=== PATIENT | male | born 1985 | race Caucasian/White ===

== ENCOUNTER 2020-01-17 04:41 | Emergency (ER) | payer MEDICAID, OTHER ==
[~2020-01-17] VITALS: Ht 188 cm; Wt 102.0 kg
[~2020-01-17 04:41] MED LIST: CHLO25CA9 PO; FOLI-17 PO; MAGN400T26 PO; METO25TA35 PO; MULT-658 PO; NICO-487 TD; THIA100T67 PO
--- NOTE | 2020-01-17 05:05 | NUR ---
FIRST PT CONTACT. PT STANDING IN ROOM, FIDGETING, CHANGED INTO GOWN AND SITTING UP ON EDGE OF GURNEY. PT UNABLE TO STAY STILL. PT STATES "I HAVE BEEN DRINKING A LOT FOR 2 WEEKS" AND THAT "TODAY A FRIEND CAME OVER WE DID A COUPLE LINES". WHEN ASKED WHAT HE TOOK PT STATES "METH." PT REPORTS THAT CP BEGAN ABOUT 6 HRS POST USE AND UVULA NOW FEELS SWOLLEN. PT CMS INTACT, NO EDEMA, DENIES N/V/D, DENIES SYNCOPY OR DIZZINESS. PULSES 2+ PEDAL AND RADIAL. PT SPEECH IS RUSHED AND APPEARS ANXIOUS, SKIN DIAPHORETIC AND FLUSHED. PT PLACED ON SPO2, BP, AND JONES MONITORING. PT IS SINUS TALK 130-140S. DAR MEDINA AT BS FOR EVAL AND POC.
[2020-01-17] MEDS ORDERED: DIAZEPAM 5 MG/ML, 2ML ONE (05:14)
[2020-01-17] MEDS ORDERED: ONDANSETRON 2MG/ML, 2ML ONE (05:15)
[2020-01-17] MEDS ORDERED: ASPIRIN 81 MG TABLET CHEW ONE (05:15)
[2020-01-17] MEDS ORDERED: ASPIRIN 81 MG TABLET CHEW PO ONE (05:30)
[2020-01-17] MEDS ORDERED: DIAZEPAM 5 MG/ML, 2ML IV ONE (05:30)
[2020-01-17] MEDS ORDERED: SODIUM CHLORIDE FLUSH 10ML SYR IVF ONE (05:30)
[2020-01-17] MEDS ORDERED: ONDANSETRON 2MG/ML, 2ML IVPush ONE (05:30)
--- NOTE | 2020-01-17 05:46 | NUR ---
PT MEDICATED PER MAR. PRIOR TO MEDICATING RN CONSULT WITH PA ON ALLERGIES AND MEDICATIONS. PA OKAY'D MED TO BE GIVEN. PT SITTING IN [facility], REPORTS FEELING SLIGHTLY CALMER, STILL APPEARS ANXIOUS, PT DIAPHORETIC AND FLUSHED. PT REPEATEDLY ASKING RN "HOW LONG IS THIS GONNA TAKE"... "ONLY LIKE 30 MINUTES RIGHT". WCTM. WAITING ON LAB RESULTS. PT CONFIRMED HE HAS RIDE HOME AVAILABLE
[2020-01-17 05:57] LABS: BASOPHILS # (AUTO) 0.06 x10^3/uL (0-0.1); BASOPHILS % (AUTO) 0 % (0-1); EOSINOPHILS # (AUTO) 0.01 x10^3/uL (0-0.4); EOSINOPHILS % (AUTO) 0 % (1-7); LYMPHOCYTES # (AUTO) 1.44 x10^3/uL (1-3.4); LYMPHOCYTES % (AUTO) 11 % (22-44); MD NO; MEAN CORPUSCULAR HEMOGLOBIN 31.6 pg (27.5-34.5); MEAN CORPUSCULAR VOLUME 92.8 fL (81-97); MEAN PLATELET VOLUME 7.9 fL (7.4-10.4); MONOCYTES # (AUTO) 0.92 x10^3/uL (0.2-0.8); MONOCYTES % (AUTO) 7 % (2-9); NEUTROPHILS # (AUTO) 10.42 x10^3/uL (1.8-6.8); NEUTROPHILS % (AUTO) 81 % (42-75); PLATELET COUNT 219 x10^3/uL (130-400); RED BLOOD COUNT 5.16 x10^6/uL (4.38-5.82); RED CELL DISTRIBUTION WIDTH 13.9 % (9.4-14.8)
[2020-01-17 06:00] LABS: ALANINE AMINOTRANSFERASE 16 U/L (12-78); ANION GAP 10 mmol/L (5-15); CALCIUM 8.8 mg/dL (8.5-10.1); CHLORIDE 106 mmol/L (98-107); CREATININE 1.22 mg/dL (0.7-1.3)
[2020-01-17 06:05] LABS: ALKALINE PHOSPHATASE 145 U/L (45-117); BILIRUBIN,TOTAL 1.6 mg/dL (0.2-1.0); TOTAL PROTEIN 8.5 g/dL (6.4-8.2); TROPONIN I < 0.015 ng/mL (0.000-0.045)
[2020-01-17] MEDS ORDERED: DEXAMETHASONE 4 MG/ML, 5ML ONE (06:08)
--- NOTE | 2020-01-17 06:16 | NUR ---
PT UPDATED ON POC, PT APPEARS MORE RELAXED, SPEECH SLOWER, SKIN LESS DIAPHORETIC BUT STILL FLUSHED. SITTING UP ON EDGE OF THE BED, WCTM. WAITING FOR CTA.
[2020-01-17] MEDS ORDERED: DEXAMETHASONE 4 MG/ML, 1ML IVPush ONE (06:30)
[2020-01-17] MEDS ORDERED: OMNIPAQUE 350 MG/ML, 100ML BOTTLE ONE (06:34)
--- NOTE | 2020-01-17 06:35 | NUR ---
PT TO AND FROM CT.
--- NOTE | 2020-01-17 06:52 | NUR ---
RECEIVED REPORT FROM KATHLEEN RADFORD. PT SITTING ON EDGE OF BED AWAITING CT RESULTS. STATES ULVULA CONTINUES TO BE SWOLLEN. AIRWAY PATENT. PT ON MONITOR AND NOTED TO BE TACHICARDIC AT 120.
--- NOTE | 2020-01-17 07:57 | NUR ---
AFTER PROVIDER RE-EVAL, PT GIVEN DISCHARGE INSTRUCTIONS.
[2020-01-17 07:58] VITALS: BP 146/85
== END 2020-01-17 07:59 | disposition home or self-care (01) ==
LOC: ED 05:42
DX: R07.89 Other chest pain (principal); F10.10 Alcohol abuse, uncomplicated; F15.10 Other stimulant abuse, uncomplicated; I47.1 Supraventricular tachycardia; I49.3 Ventricular premature depolarization; Z88.8 Allergy status to other drugs, medicaments and biological substances; Y90.9 Presence of alcohol in blood, level not specified
CPT/HCPCS: 36415; 71045; 71275; 80053; 83690; 84484; 85025; 85379; 93005; 96374; 96375; 99285; J1100; J2405; J3360; Q9967